=== PATIENT | female | born 1945 | race Caucasian/White ===

== ENCOUNTER 2017-09-22 17:39 | Inpatient (IN) | payer MEDICARE ==
[~2017-09-22] VITALS: Ht 152.4 cm; Wt 79.0 kg
[2017-09-22 18:29] LABS: MICROSCOPIC NOT IND
[2017-09-22 18:32] LABS: BASOPHILS # (AUTO) 0.03 x10^3/uL (0-0.1); BASOPHILS % (AUTO) 0 % (0-1); EOSINOPHILS # (AUTO) 0.16 x10^3/uL (0-0.4); EOSINOPHILS % (AUTO) 2 % (1-7); LYMPHOCYTES # (AUTO) 2.71 x10^3/uL (1-3.4); LYMPHOCYTES % (AUTO) 27 % (22-44); MD NO; MEAN CORPUSCULAR HEMOGLOBIN 29.5 pg (27.0-34.8); MEAN CORPUSCULAR VOLUME 89.4 fL (80-100); MEAN PLATELET VOLUME 8.1 fL (7.4-10.4); MONOCYTES # (AUTO) 0.58 x10^3/uL (0.2-0.8); MONOCYTES % (AUTO) 6 % (2-9); NEUTROPHILS # (AUTO) 6.63 x10^3/uL (1.8-6.8); NEUTROPHILS % (AUTO) 66 % (42-75); PLATELET COUNT 320 x10^3/uL (130-400); RED BLOOD COUNT 4.97 x10^6/uL (3.82-5.3); RED CELL DISTRIBUTION WIDTH 13.7 % (9.6-15.2)
[2017-09-22 18:36] LABS: CULTURE INDICATED? NO
[2017-09-22 18:42] LABS: ALANINE AMINOTRANSFERASE 14 U/L (12-78); ALBUMIN 3.9 g/dL (3.4-5.0); ANION GAP 8 mmol/L (5-15); CALCIUM 9.2 mg/dL (8.5-10.1); CHLORIDE 107 mmol/L (98-107); CREATININE 0.71 mg/dL (0.55-1.02)
[2017-09-22 18:46] LABS: ALKALINE PHOSPHATASE 109 U/L (45-117); BILIRUBIN,TOTAL 0.5 mg/dL (0.2-1.0); TOTAL PROTEIN 7.7 g/dL (6.4-8.2); TROPONIN I < 0.015 ng/mL (0.000-0.045)
[2017-09-22] MEDS ORDERED: CITA10TA4 PO (19:02)
[2017-09-22] MEDS ORDERED: LISI2.5T PO (19:02)
[2017-09-22] MEDS ORDERED: ACETAMINOPHEN 325 MG TABLET ONE (21:12)
[2017-09-22] MEDS ORDERED: ASPIRIN 325 MG TABLET PO ONE (21:18)
[2017-09-22] MEDS ORDERED: ACETAMINOPHEN 325 MG TABLET PO ONE (21:30)
[2017-09-22] MEDS ORDERED: ASPIRIN 325 MG TABLET ONE (21:37)
[2017-09-22] MEDS ORDERED: CALC-451 PO (21:41)
[2017-09-22] MEDS ORDERED: SIMV5TAB5 PO (21:41)
[2017-09-22] MEDS ORDERED: POLYETHYLENE GLYCOL 17 GM PACKET PO PRN (22:30)
[2017-09-22] MEDS ORDERED: SIMVASTATIN 10 MG TABLET PO SCH (22:30)
[2017-09-22] MEDS ORDERED: BISACODYL 10 MG SUPP PR PRN (22:30)
[2017-09-22] MEDS ORDERED: ONDANSETRON 2MG/ML, 2ML IVPush PRN (22:30)
[2017-09-22] MEDS ORDERED: ACETAMINOPHEN 325 MG TABLET PO PRN (22:30)
[2017-09-22 22:48] VITALS: BP 144/68
[2017-09-22] MEDS: SODIUM CHLORIDE FLUSH 10ML SYR IVF SCH (23:23)
[2017-09-23 01:53] VITALS: BP 145/61
[2017-09-23 05:22] VITALS: BP 142/74
[2017-09-23] MEDS: ASPIRIN 81 MG TABLET CHEW PO SCH (05:57)
[2017-09-23 06:25] LABS: ALBUMIN 3.2 g/dL (3.4-5.0); ANION GAP 6 mmol/L (5-15); CALCIUM 8.4 mg/dL (8.5-10.1); CHLORIDE 111 mmol/L (98-107)
[2017-09-23 06:27] LABS: TROPONIN I < 0.015 ng/mL (0.000-0.045)
[2017-09-23 06:28] LABS: ALANINE AMINOTRANSFERASE 14 U/L (12-78); ALKALINE PHOSPHATASE 95 U/L (45-117); BILIRUBIN,TOTAL 0.9 mg/dL (0.2-1.0); CHOL/HDL RATIO 3.4; CHOLESTEROL, TOTAL 167 mg/dL (140-239); CREATININE 0.57 mg/dL (0.55-1.02); HDL CHOL % 29 % (28-40); HDL CHOLESTEROL (DIRECT) 49 mg/dL (40-60); LDL CHOLESTEROL,CALCULATED 93 mg/dL (54-169); LDL/HDL RATIO 1.9 (0.5-3.0); TOTAL PROTEIN 6.6 g/dL (6.4-8.2); TRIGLYCERIDES 125 mg/dL (50-200); VLDL CHOLESTEROL 25 mg/dL (0-25)
[2017-09-23 06:47] LABS: BASOPHILS # (AUTO) 0.07 x10^3/uL (0-0.1); BASOPHILS % (AUTO) 1 % (0-1); EOSINOPHILS # (AUTO) 0.23 x10^3/uL (0-0.4); EOSINOPHILS % (AUTO) 3 % (1-7); LYMPHOCYTES # (AUTO) 2.85 x10^3/uL (1-3.4); LYMPHOCYTES % (AUTO) 33 % (22-44); MD SCAN; MEAN CORPUSCULAR HEMOGLOBIN 29.8 pg (27.0-34.8); MEAN CORPUSCULAR HGB CONC 33.3 g/dL (32.4-35.8); MEAN CORPUSCULAR VOLUME 89.3 fL (80-100); MEAN PLATELET VOLUME 8.9 fL (7.4-10.4); MONOCYTES # (AUTO) 0.54 x10^3/uL (0.2-0.8); MONOCYTES % (AUTO) 6 % (2-9); NEUTROPHILS % (AUTO) 58 % (42-75); PLATELET COUNT 243 x10^3/uL (130-400); RED BLOOD COUNT 4.74 x10^6/uL (3.82-5.3); RED CELL DISTRIBUTION WIDTH 13.7 % (9.6-15.2)
[2017-09-23 06:50] VITALS: BP 134/73
[2017-09-23] MEDS: SODIUM CHLORIDE FLUSH 10ML SYR IVF SCH ×2 (08:02→20:53)
[2017-09-23] MEDS: CALCIUM/VITAMIN D3 250-125 TABLET PO SCH (08:02)
[2017-09-23] MEDS: CITALOPRAM 10 MG TABLET PO SCH (08:02)
[2017-09-23] MEDS: LISINOPRIL 20 MG TABLET PO SCH (08:02)
[2017-09-23] MEDS: SENNA/DOCUSATE TABLET PO SCH (08:03)
[2017-09-23 11:46] LABS: TROPONIN I < 0.015 ng/mL (0.000-0.045)
[2017-09-23 18:46] VITALS: BP 147/74
[2017-09-23] MEDS: SIMVASTATIN 10 MG TABLET PO SCH (20:53)
[2017-09-24 02:15] VITALS: BP 152/82
[2017-09-24] MEDS: ASPIRIN 81 MG TABLET CHEW PO SCH (05:32)
[2017-09-24] MEDS: CALCIUM/VITAMIN D3 250-125 TABLET PO SCH (08:05)
[2017-09-24] MEDS: CITALOPRAM 10 MG TABLET PO SCH (08:05)
[2017-09-24] MEDS: LISINOPRIL 20 MG TABLET PO SCH (08:05)
[2017-09-24] MEDS: SENNA/DOCUSATE TABLET PO SCH (08:06)
[2017-09-24] MEDS: SODIUM CHLORIDE FLUSH 10ML SYR IVF SCH ×2 (08:06→20:35)
[2017-09-24 08:29] VITALS: BP 151/73
[2017-09-24 14:09] VITALS: BP 142/83
[2017-09-24 19:47] VITALS: BP 138/72
[2017-09-24] MEDS: SIMVASTATIN 10 MG TABLET PO SCH (20:35)
[2017-09-25] MEDS: ASPIRIN 81 MG TABLET CHEW PO SCH (05:32)
[2017-09-25 05:34] VITALS: BP 139/84
[2017-09-25 06:45] VITALS: BP 130/74
[2017-09-25] MEDS: LISINOPRIL 20 MG TABLET PO SCH (08:32)
[2017-09-25] MEDS: CALCIUM/VITAMIN D3 250-125 TABLET PO SCH (08:32)
[2017-09-25] MEDS: SENNA/DOCUSATE TABLET PO SCH (08:32)
[2017-09-25] MEDS: CITALOPRAM 10 MG TABLET PO SCH (08:32)
[2017-09-25] MEDS: SODIUM CHLORIDE FLUSH 10ML SYR IVF SCH ×2 (08:33→21:39)
[2017-09-25 12:30] VITALS: BP 128/74
[2017-09-25 21:09] VITALS: BP 128/75
[2017-09-25] MEDS: SIMVASTATIN 10 MG TABLET PO SCH (21:39)
[2017-09-26 03:28] VITALS: BP 139/83
[2017-09-26] MEDS: ASPIRIN 81 MG TABLET CHEW PO SCH (06:27)
[2017-09-26 07:15] VITALS: BP 144/72
[2017-09-26] MEDS: LISINOPRIL 20 MG TABLET PO SCH (09:00)
[2017-09-26] MEDS: SENNA/DOCUSATE TABLET PO SCH (09:00)
[2017-09-26] MEDS: SODIUM CHLORIDE FLUSH 10ML SYR IVF SCH (09:01)
[2017-09-26] MEDS: CALCIUM/VITAMIN D3 250-125 TABLET PO SCH (09:01)
[2017-09-26] MEDS: CITALOPRAM 10 MG TABLET PO SCH (09:01)
[2017-09-26] MEDS ORDERED: SIMV20TA3 PO (14:11)
[2017-09-26] MEDS ORDERED: ASPI-515 PO (14:11)
[2017-09-26 14:37] VITALS: BP 146/75
== END 2017-09-26 15:16 | DRG 65 ==
LOC: ED 21:00 → EDIP 21:10 → 4EST 22:36
PROVIDERS: ADMIT Hospitalist; ATTEND Hospitalist
DX: I63.9 Cerebral infarction, unspecified (principal); G81.91 Hemiplegia, unspecified affecting right dominant side; E78.5 Hyperlipidemia, unspecified; I10 Essential (primary) hypertension; F32.9 Major depressive disorder, single episode, unspecified; M81.0 Age-related osteoporosis without current pathological fracture; R29.810 Facial weakness; Z80.3 Family history of malignant neoplasm of breast; Z82.49 Family history of ischemic heart disease and other diseases of the circulatory system; Z82.5 Family history of asthma and other chronic lower respiratory diseases; Z90.710 Acquired absence of both cervix and uterus; Z82.3 Family history of stroke; Z90.10 Acquired absence of unspecified breast and nipple
CPT/HCPCS: 36415; 70450; 70551; 80053; 80061; 81003; 83605; 84484; 85025; 93005; 93306; 93880; 99285; 92523-GN